=== PATIENT | female | born 1945 | race Caucasian/White ===

== ENCOUNTER 2021-05-23 16:08 | Outpatient (CLI) | payer MEDICARE, BC | END 2021-05-23 23:59 | disposition home or self-care (01) | LOC: RAD 16:08 | PROVIDERS: ATTEND Physician Assistant | DX: L02.91 Cutaneous abscess, unspecified (principal) ==

== ENCOUNTER 2021-05-28 13:05 | Outpatient (CLI) | payer MEDICARE, BC | END 2021-05-28 23:59 | disposition home or self-care (01) | LOC: CFH 13:05 | PROVIDERS: ATTEND Internal Medicine | DX: R91.8 Other nonspecific abnormal finding of lung field (principal) | CPT/HCPCS: 71250 ==